=== PATIENT | male | born 1955 | race African-American/Black ===

== ENCOUNTER 2018-02-10 14:19 | Inpatient (IN) | payer MEDICARE, MEDICAID ==
[~2018-02-10] VITALS: Ht 170.2 cm; Wt 95.3 kg
[~2018-02-10 14:19] MED LIST: AMLO5TAB4 PO; FLUT1DIS3 IH; HYDR-523 PO
[2018-02-10] MEDS ORDERED: LIDOCAINE HCL/PF 1% 2ML VIAL ONE (15:34)
[2018-02-10] MEDS ORDERED: ALBUTEROL (0.083%) 2.5MG/3ML NEB HHN STA (15:47)
[2018-02-10] MEDS ORDERED: IPRATROPIUM BROMIDE (0.02%) 0.5MG/2.5ML NEB HHN STA (15:47)
[2018-02-10] MEDS ORDERED: METHYLPREDNISOLONE SOD SUCC 125 MG/2 ML VIAL IV STA (15:47)
[2018-02-10 16:00] LABS: BASOPHILS % 0.5 % (0.0-2.0); EOSINOPHILS % 2.2 % (0.0-5.0); HEMATOCRIT. 38.7 % (42.0-52.0); HEMOGLOBIN. 12.8 g/dL (14.0-18.0); LYMPHOCYTES % 10.9 % (20.0-50.0); MEAN CORPUSCULAR HEMOGLOBIN 26.7 pg (28.0-32.0); MEAN CORPUSCULAR VOLUME 80.4 fL (80.0-94.0); MEAN PLATELET VOLUME 7.9 fl (7.4-10.4); MONOCYTES % 8.2 % (2.0-8.0); NEUTROPHILS % 78.2 % (40.0-76.0); PLATELET 418 x1000/uL (130-400); RED BLOOD CELL COUNT 4.81 mill/uL (4.7-6.1); RED CELL DISTRIBUTION WIDTH 16.6 % (11.6-14.6)
[2018-02-10 16:03] LABS: BG BASE EXCESS 0.8 mmol/L (-2.0-2.0); BG BILEVEL POS AIRWAY PRESSURE 15/5; BG DEOXYHEMOGLOBIN 1.1 % (0.0-5.0); BG HCO3 ACT 27.2 mmol/L (22.0-26.0); BG METHEMOGLOBIN 0.3 % (0.0-1.5); BG OXYGEN SATURATION 98.9 % (92.0-98.5); BG OXYHEMOGLOBIN 95.6 % (94.0-97.0); BG PCO2 50.6 mmHg (35.0-45.0); BG PH 7.348 (7.350-7.450); BG PO2 159.2 mmHg (75.0-100.0); BG SAMPLE SITE RIGHT RADIAL; BG TOTAL HEMOGLOBIN 12.8 g/dL (12.0-18.0); BG VENT MODE MASK - BIPAP; BG VENT RATE 14 set
[2018-02-10 16:03] LABS: CHLORIDE 103 mEq/L (98-107)
[2018-02-10] MEDS ORDERED: LEVOFLOXACIN 750MG PREMIX 150 ML IV ONE (19:00)
[2018-02-10] MEDS ORDERED: CEFTRIAXONE 1,000 MG in DEXTROSE 5% WATER 50 ML IV SCH (21:45)
[2018-02-10] MEDS ORDERED: ACETAMINOPHEN 325MG TABLET PO PRN (21:45)
[2018-02-10] MEDS ORDERED: ZOLPIDEM TARTRATE 5MG TABLET PO PRN (21:45)
[2018-02-10 22:00] VITALS: BP 118/67
[2018-02-10] MEDS: AMLODIPINE 5MG TABLET PO SCH (22:26)
[2018-02-10] MEDS: METHYLPREDNISOLONE SOD SUCC 125 MG/2 ML VIAL IV SCH (23:25)
[2018-02-10] MEDS: AZITHROMYCIN 500 MG in DEXT 5% WATER 250 ML IV SCH (23:25)
[2018-02-10 23:50] VITALS: BP 156/81
[2018-02-11] VITALS (9 sets, daily range): BP systolic 128–151; BP diastolic 56–102
[2018-02-11] MEDS ORDERED: METHYLPREDNISOLONE SOD SUCC 125 MG/2 ML VIAL IV SCH
[2018-02-11] MEDS: IPRATROPIUM/ALBUTEROL 0.5-3(2.5)MG/3ML NEB HHN SCH ×6 (00:06→21:06)
[2018-02-11] MEDS: CEFTRIAXONE 2 G in DEXTROSE 5% WATER 50 ML IV SCH (00:51)
[2018-02-11] MEDS: TRAMADOL 50MG TABLET PO PRN ×3 (05:03→16:13)
[2018-02-11] MEDS: METHYLPREDNISOLONE SOD SUCC 125 MG/2 ML VIAL IV SCH ×3 (05:04→16:13)
[2018-02-11 06:03] LABS: CHLORIDE 101 mEq/L (98-107)
[2018-02-11 06:18] LABS: HEMATOCRIT. 37.1 % (42.0-52.0); HEMOGLOBIN. 12.3 g/dL (14.0-18.0); MEAN CORPUSCULAR HEMOGLOBIN 26.6 pg (28.0-32.0); MEAN CORPUSCULAR VOLUME 80.4 fL (80.0-94.0); MEAN PLATELET VOLUME 7.7 fl (7.4-10.4); PLATELET 335 x1000/uL (130-400); RED BLOOD CELL COUNT 4.61 mill/uL (4.7-6.1); RED CELL DISTRIBUTION WIDTH 16.5 % (11.6-14.6)
[2018-02-11] MEDS: FAMOTIDINE 20MG TABLET PO SCH ×2 (08:49→21:10)
[2018-02-11] MEDS: ENOXAPARIN 30MG/0.3ML SYR SUBCUT SCH ×3 (08:49→21:11)
[2018-02-11] MEDS: AMLODIPINE 5MG TABLET PO SCH (08:50)
[2018-02-11 13:36] LABS: BG BASE EXCESS 3.4 mmol/L (-2.0-2.0); BG CARBOXYHEMOGLOBIN 0.9 % (0.5-1.5); BG FRACTION INSPIRED OXYGEN 28; BG HCO3 ACT 29.2 mmol/L (22.0-26.0); BG METHEMOGLOBIN 0.3 % (0.0-1.5); BG OXYHEMOGLOBIN 96.8 % (94.0-97.0); BG PCO2 49.7 mmHg (35.0-45.0); BG PH 7.387 (7.350-7.450); BG PO2 105.4 mmHg (75.0-100.0); BG SAMPLE SITE RIGHT RADIAL; BG TOTAL HEMOGLOBIN 12.3 g/dL (12.0-18.0); BG VENT MODE NASAL CANNULA
[2018-02-11 13:43] LABS: PLATELET ESTIMATE NORMAL
[2018-02-11] MEDS ORDERED: LIDOCAINE HCL/PF 1% 2ML VIAL ONE (15:18)
[2018-02-11] MEDS ORDERED: IOHEXOL-350 100 ML BOTTLE ONE (18:40)
[2018-02-11] MEDS: NICOTINE 21MG PATCH TD SCH ×2 (18:41→18:45)
[2018-02-11] MEDS: DOCUSATE SODIUM SUGAR FREE 100MG/10ML UDC NG SCH (18:41)
[2018-02-11] MEDS: FUROSEMIDE 40MG/4ML VIAL IVP SCH (21:10)
[2018-02-11] MEDS: LACTULOSE 20G/30ML UDC PO SCH (21:12)
[2018-02-11] MEDS: MORPHINE SULFATE 4 MG/ML CPJ (NOT FOR IM USE) IV PRN (21:18)
[2018-02-12] VITALS (11 sets, daily range): BP systolic 105–145; BP diastolic 67–83
[2018-02-12] MEDS: METHYLPREDNISOLONE SOD SUCC 125 MG/2 ML VIAL IV SCH ×4 (00:32→17:39)
[2018-02-12] MEDS: AZITHROMYCIN 500 MG in DEXT 5% WATER 250 ML IV SCH (00:32)
[2018-02-12] MEDS: CEFTRIAXONE 2 G in DEXTROSE 5% WATER 50 ML IV SCH (00:43)
[2018-02-12] MEDS: IPRATROPIUM/ALBUTEROL 0.5-3(2.5)MG/3ML NEB HHN SCH ×7 (01:22→20:37)
[2018-02-12] MEDS: MORPHINE SULFATE 4 MG/ML CPJ (NOT FOR IM USE) IV PRN ×3 (02:33→15:26)
[2018-02-12 05:43] LABS: HEMATOCRIT. 35.4 % (42.0-52.0); HEMOGLOBIN. 11.8 g/dL (14.0-18.0); MEAN CORPUSCULAR HEMOGLOBIN 26.5 pg (28.0-32.0); MEAN CORPUSCULAR VOLUME 79.7 fL (80.0-94.0); MEAN PLATELET VOLUME 7.8 fl (7.4-10.4); PLATELET 332 x1000/uL (130-400); RED BLOOD CELL COUNT 4.44 mill/uL (4.7-6.1); RED CELL DISTRIBUTION WIDTH 16.9 % (11.6-14.6)
[2018-02-12 05:53] LABS: CHLORIDE 100 mEq/L (98-107)
[2018-02-12 06:02] LABS: HDL CHOLESTEROL 53 mg/dL (40-59); LDL CHOLESTEROL 55 mg/dL (5-100)
[2018-02-12] MEDS: LACTULOSE 20G/30ML UDC PO SCH ×3 (06:17→21:20)
[2018-02-12] MEDS: FUROSEMIDE 40MG/4ML VIAL IVP SCH (09:14)
[2018-02-12] MEDS: DOCUSATE SODIUM SUGAR FREE 100MG/10ML UDC NG SCH (09:14)
[2018-02-12] MEDS: AMLODIPINE 5MG TABLET PO SCH (09:28)
[2018-02-12] MEDS: ENOXAPARIN 30MG/0.3ML SYR SUBCUT SCH ×2 (09:28→21:21)
[2018-02-12] MEDS: FAMOTIDINE 20MG TABLET PO SCH ×2 (09:28→21:20)
[2018-02-12 13:45] LABS: PLATELET ESTIMATE NORMAL
[2018-02-12] MEDS: HYDROCODONE/ACETAMINOPHEN 5/325MG TABLET PO PRN ×2 (17:42→22:25)
[2018-02-12 21:14] LABS: *AMPHETAMINES SCREEN URINE NEGATIVE (NEGATIVE); *BARBITURATES SCREEN URINE NEGATIVE (NEGATIVE); *BENZODIAZEPINES SCREEN URINE NEGATIVE (NEGATIVE); *COCAINE SCREEN URINE NEGATIVE (NEGATIVE)
[2018-02-12 21:17] LABS: CANNABINOID URINE SCREEN NEGATIVE (NEGATIVE); METHADONE URINE SCREEN NEGATIVE (NEGATIVE); OPIATES URINE SCREEN PRESUMTIVE POSITIVE (NEGATIVE); PHENCYCLIDINE URINE SCREEN NEGATIVE (NEGATIVE)
[2018-02-13] VITALS (7 sets, daily range): BP systolic 121–175; BP diastolic 59–89
[2018-02-13] MEDS: METHYLPREDNISOLONE SOD SUCC 125 MG/2 ML VIAL IV SCH ×2 (00:30→05:28)
[2018-02-13] MEDS: CEFTRIAXONE 2 G in DEXTROSE 5% WATER 50 ML IV SCH (00:30)
[2018-02-13] MEDS: AZITHROMYCIN 500 MG in DEXT 5% WATER 250 ML IV SCH (00:30)
[2018-02-13] MEDS: MORPHINE SULFATE 4 MG/ML CPJ (NOT FOR IM USE) IV PRN ×2 (00:31→08:13)
[2018-02-13] MEDS: IPRATROPIUM/ALBUTEROL 0.5-3(2.5)MG/3ML NEB HHN SCH ×3 (04:05→12:00)
[2018-02-13] MEDS: LACTULOSE 20G/30ML UDC PO SCH ×2 (05:28→14:00)
[2018-02-13] MEDS: DOCUSATE SODIUM SUGAR FREE 100MG/10ML UDC NG SCH (08:42)
[2018-02-13] MEDS: FAMOTIDINE 20MG TABLET PO SCH (08:42)
[2018-02-13] MEDS: FUROSEMIDE 40MG/4ML VIAL IVP SCH (08:42)
[2018-02-13] MEDS: AMLODIPINE 5MG TABLET PO SCH (08:43)
[2018-02-13] MEDS: NICOTINE 21MG PATCH TD SCH ×2 (08:43→08:48)
[2018-02-13] MEDS: ENOXAPARIN 30MG/0.3ML SYR SUBCUT SCH (08:47)
[2018-02-13] MEDS: HYDROCODONE/ACETAMINOPHEN 5/325MG TABLET PO PRN (11:24)
[2018-02-13] MEDS ORDERED: METHYLPREDNISOLONE SOD SUCC 40 MG/ML VIAL IV SCH (14:00)
== END 2018-02-13 14:30 | disposition home or self-care (01) | DRG 291 ==
LOC: ER 14:32 → 5EST 18:33 → ENRESERV 19:42 → 5EST 20:43
PROVIDERS: ADMIT Ophthalmology; ATTEND Internal Medicine
PROC: 5A09357 Assistance with Respiratory Ventilation, Less than 24 Consecutive Hours, Continuous Positive Airway Pressure (ICD-10-PCS; principal; 2018-02-10)
DX: I11.0 Hypertensive heart disease with heart failure (principal); J18.9 Pneumonia, unspecified organism; J44.1 Chronic obstructive pulmonary disease with (acute) exacerbation; J44.0 Chronic obstructive pulmonary disease with (acute) lower respiratory infection; F11.20 Opioid dependence, uncomplicated; R10.10 Upper abdominal pain, unspecified; I50.43 Acute on chronic combined systolic (congestive) and diastolic (congestive) heart failure; I27.81 Cor pulmonale (chronic); D64.9 Anemia, unspecified; D72.829 Elevated white blood cell count, unspecified; G89.4 Chronic pain syndrome; F17.210 Nicotine dependence, cigarettes, uncomplicated; T38.0X5A Adverse effect of glucocorticoids and synthetic analogues, initial encounter; F41.9 Anxiety disorder, unspecified; Z88.8 Allergy status to other drugs, medicaments and biological substances; Z79.899 Other long term (current) drug therapy; Z99.81 Dependence on supplemental oxygen; Y92.89 Other specified places as the place of occurrence of the external cause
CPT/HCPCS: 36415; 36600; 71045; 80048; 80061; 80305; 82375; 82805; 83036; 83605; 83880; 84484; 87804; 93005; 93306; 93970; 96374; 96375; 99291; J0456; J0696; J1650; J1940; J1956; J2270; J2930; J3490; J7030; J7050; J7060; J7611; J7620; Q9967

== ENCOUNTER 2018-05-11 18:39 | Emergency (ER) | payer MEDICARE, MEDICAID ==
[~2018-05-11] VITALS: Ht 175.3 cm; Wt 85.0 kg
[2018-05-11] MEDS ORDERED: FENT-70 TD (18:49)
[2018-05-12 00:09] VITALS: BP 127/61
== END 2018-05-12 00:22 | disposition home or self-care (01) ==
LOC: ER 18:39
DX: J44.9 Chronic obstructive pulmonary disease, unspecified (principal); R06.03 Acute respiratory distress; I11.0 Hypertensive heart disease with heart failure; I50.9 Heart failure, unspecified; E11.9 Type 2 diabetes mellitus without complications
CPT/HCPCS: 82962; 99282; 99283

== ENCOUNTER 2018-05-25 15:23 | Inpatient (IN) | payer MEDICARE, MEDICAID ==
[~2018-05-25] VITALS: Ht 177.8 cm; Wt 91.6 kg
[~2018-05-25 15:23] MED LIST changes: +FENT-70 TD
[2018-05-25 16:14] LABS: BG BASE EXCESS 5.1 mmol/L (-2.0-2.0); BG CARBOXYHEMOGLOBIN 2.7 % (0.5-1.5); BG DEOXYHEMOGLOBIN 5.3 % (0.0-5.0); BG HCO3 ACT 32.2 mmol/L (22.0-26.0); BG METHEMOGLOBIN 0.3 % (0.0-1.5); BG OXYGEN SATURATION 94.5 % (92.0-98.5); BG OXYHEMOGLOBIN 91.7 % (94.0-97.0); BG PH 7.347 (7.350-7.450); BG PO2 75.3 mmHg (75.0-100.0); BG SAMPLE SITE LEFT RADIAL; BG TOTAL HEMOGLOBIN 11.8 g/dL (12.0-18.0); BG VENT MODE NASAL CANNULA
[2018-05-25 17:00] LABS: CHLORIDE 102 mEq/L (98-107)
[2018-05-25 17:04] LABS: BASOPHILS % 0.8 % (0.0-2.0); EOSINOPHILS % 1.2 % (0.0-5.0); HEMATOCRIT. 33.9 % (42.0-52.0); HEMOGLOBIN. 11.3 g/dL (14.0-18.0); LYMPHOCYTES % 11.2 % (20.0-50.0); MEAN CORPUSCULAR HEMOGLOBIN 28.3 pg (28.0-32.0); MEAN PLATELET VOLUME 7.1 fl (7.4-10.4); MONOCYTES % 7.1 % (2.0-8.0); NEUTROPHILS % 79.7 % (40.0-76.0); PLATELET 302 x1000/uL (130-400); RED BLOOD CELL COUNT 3.99 mill/uL (4.7-6.1); RED CELL DISTRIBUTION WIDTH 16.5 % (11.6-14.6)
[2018-05-25] MEDS ORDERED: IPRATROPIUM/ALBUTEROL 0.5-3(2.5)MG/3ML NEB HHN ONE (19:45)
[2018-05-25 21:20] LABS: CLARITY URINE CLEAR (CLEAR); COLOR URINE YELLOW (YELLOW); KETONES URINE NEGATIVE (NEGATIVE); LEUKOCYTE ESTERASE URINE NEGATIVE (NEGATIVE); NITRITE URINE NEGATIVE (NEGATIVE); OCCULT BLOOD URINE NEGATIVE (NEGATIVE); PROTEIN URINE 1+ (NEGATIVE); SPECIFIC GRAVITY URINE 1.026 (1.005-1.030)
[2018-05-25 21:35] LABS: *AMPHETAMINES SCREEN URINE NEGATIVE (NEGATIVE); *BARBITURATES SCREEN URINE NEGATIVE (NEGATIVE); *BENZODIAZEPINES SCREEN URINE NEGATIVE (NEGATIVE)
[2018-05-25 21:36] LABS: *COCAINE SCREEN URINE NEGATIVE (NEGATIVE); CANNABINOID URINE SCREEN NEGATIVE (NEGATIVE); METHADONE URINE SCREEN PRESUMTIVE POSITIVE (NEGATIVE); OPIATES URINE SCREEN PRESUMTIVE POSITIVE (NEGATIVE); PHENCYCLIDINE URINE SCREEN NEGATIVE (NEGATIVE)
[2018-05-26] VITALS (14 sets, daily range): BP systolic 128–177; BP diastolic 57–183
[2018-05-26] MEDS ORDERED: METHYLPREDNISOLONE SOD SUCC 40 MG/ML VIAL IV ONE
[2018-05-26] MEDS ORDERED: DEXT 5%/0.45% NACL 1000ML 1,000 ML IV SCH ×2 (01:39→15:45)
[2018-05-26] MEDS ORDERED: ACETAMINOPHEN 325MG TABLET PO PRN (01:45)
[2018-05-26] MEDS ORDERED: METHYLPREDNISOLONE SOD SUCC 40 MG/ML VIAL IV SCH (01:45)
[2018-05-26] MEDS ORDERED: ENOXAPARIN 40MG/0.4ML SYR SUBCUT SCH (01:45)
[2018-05-26] MEDS ORDERED: ONDANSETRON HCL 4MG/2ML INJ IV PRN (01:45)
[2018-05-26] MEDS ORDERED: CLONIDINE 0.1MG TABLET PO PRN (01:45)
[2018-05-26] MEDS ORDERED: MAGNESIUM/ALUMINUM HYDROXIDE/SIMETHICONE 30ML UDC PO PRN (01:45)
[2018-05-26] MEDS: IPRATROPIUM/ALBUTEROL 0.5-3(2.5)MG/3ML NEB INH SCH ×5 (04:00→21:36)
[2018-05-26] MEDS: METHYLPREDNISOLONE SOD SUCC 40 MG/ML VIAL IV SCH ×4 (05:05→23:09)
[2018-05-26] MEDS: LEVOFLOXACIN 500MG PREMIX 100 ML IV SCH (05:07)
[2018-05-26 07:22] LABS: CHLORIDE 100 mEq/L (98-107)
[2018-05-26 07:34] LABS: HEMATOCRIT. 32.6 % (42.0-52.0); HEMOGLOBIN. 10.7 g/dL (14.0-18.0); MEAN CORPUSCULAR HEMOGLOBIN 27.9 pg (28.0-32.0); MEAN CORPUSCULAR VOLUME 85.1 fL (80.0-94.0); MEAN PLATELET VOLUME 7.3 fl (7.4-10.4); PLATELET 264 x1000/uL (130-400); RED BLOOD CELL COUNT 3.84 mill/uL (4.7-6.1); RED CELL DISTRIBUTION WIDTH 16.2 % (11.6-14.6)
[2018-05-26 07:35] LABS: LDL CHOLESTEROL 75 mg/dL (5-100)
[2018-05-26 07:37] LABS: HDL CHOLESTEROL 66 mg/dL (40-59)
[2018-05-26] MEDS: HYDROCODONE/ACETAMINOPHEN 5/325MG TABLET PO PRN ×3 (08:42→21:43)
[2018-05-26] MEDS: AMLODIPINE 5MG TABLET PO SCH (08:43)
[2018-05-26] MEDS: ENOXAPARIN 30MG/0.3ML SYR SUBCUT SCH ×2 (08:43→20:01)
[2018-05-26] MEDS: ASPIRIN 81MG EC TABLET PO SCH (08:43)
[2018-05-26] MEDS: NICOTINE 21MG PATCH TD SCH (16:46)
[2018-05-26] MEDS ORDERED: DEXTROSE 50% WATER 50ML SYRINGE IV PRN (17:00)
[2018-05-26] MEDS: INSULIN LISPRO 100 UNITS/ML SUBCUT SCH ×2 (17:31→21:45)
[2018-05-26 17:37] LABS: PLATELET ESTIMATE NORMAL
[2018-05-26] MEDS: BLOOD SUGAR DIAGNOSTIC STRIP TEST SCH (20:01)
[2018-05-27] VITALS (7 sets, daily range): BP systolic 111–150; BP diastolic 54–89
[2018-05-27] MEDS: IPRATROPIUM/ALBUTEROL 0.5-3(2.5)MG/3ML NEB INH SCH ×5 (00:52→16:37)
[2018-05-27] MEDS: LEVOFLOXACIN 500MG PREMIX 100 ML IV SCH (03:42)
[2018-05-27] MEDS: HYDROCODONE/ACETAMINOPHEN 5/325MG TABLET PO PRN ×2 (04:16→09:31)
[2018-05-27] MEDS: METHYLPREDNISOLONE SOD SUCC 40 MG/ML VIAL IV SCH (05:19)
[2018-05-27] MEDS: BLOOD SUGAR DIAGNOSTIC STRIP TEST SCH ×2 (07:30→12:15)
[2018-05-27 07:40] LABS: HEMATOCRIT 30.8 % (42.0-52.0); HEMOGLOBIN 10.2 g/dL (14.0-18.0); MEAN CORPUSCULAR HEMOGLOBIN 27.5 pg (28.0-32.0); MEAN CORPUSCULAR VOLUME 83.5 fL (80.0-94.0); RED BLOOD CELL COUNT 3.69 mill/uL (4.7-6.1)
[2018-05-27] MEDS: INSULIN LISPRO 100 UNITS/ML SUBCUT SCH ×2 (07:43→12:53)
[2018-05-27 08:07] LABS: CHLORIDE 99 mEq/L (98-107)
[2018-05-27 08:20] LABS: T4 FREE 0.77 ng/dL (0.76-1.46)
[2018-05-27] MEDS: NICOTINE 21MG PATCH TD SCH (09:09)
[2018-05-27] MEDS: AMLODIPINE 5MG TABLET PO SCH (09:10)
[2018-05-27] MEDS: ASPIRIN 81MG EC TABLET PO SCH (09:10)
[2018-05-27] MEDS: ENOXAPARIN 30MG/0.3ML SYR SUBCUT SCH (09:11)
[2018-05-27] MEDS ORDERED: LACTULOSE 20G/30ML UDC PO SCH (11:30)
[2018-05-27] MEDS ORDERED: GUAIFENESIN 600MG ER TABLET PO SCH ×2 (12:00→21:00)
[2018-05-27] MEDS ORDERED: CARVEDILOL 3.125 MG TABLET PO NR (12:00)
[2018-05-27 13:35] LABS: PLATELET 233 x1000/uL (130-400)
[2018-05-27] MEDS ORDERED: METHYLPREDNISOLONE SOD SUCC 40 MG/ML VIAL IV SCH (14:00)
[2018-05-27] MEDS ORDERED: CARVEDILOL 3.125 MG TABLET PO SCH (21:00)
== END 2018-05-27 17:35 | disposition home or self-care (01) | DRG 291 ==
LOC: ER 15:23 → 3WST 20:32 → EDBEDREQSVC 20:35 → EDBEDREQ 20:35 → EDBEDREQTM 20:35 → ENRESERV 22:33
PROVIDERS: ADMIT Internal Medicine; ATTEND Internal Medicine
PROC: 5A09357 Assistance with Respiratory Ventilation, Less than 24 Consecutive Hours, Continuous Positive Airway Pressure (ICD-10-PCS; principal; 2018-05-25)
DX: I11.0 Hypertensive heart disease with heart failure (principal); J96.20 Acute and chronic respiratory failure, unspecified whether with hypoxia or hypercapnia; E66.2 Morbid (severe) obesity with alveolar hypoventilation; E87.2 Acidosis; J84.9 Interstitial pulmonary disease, unspecified; D64.9 Anemia, unspecified; I50.33 Acute on chronic diastolic (congestive) heart failure; F11.90 Opioid use, unspecified, uncomplicated; D72.810 Lymphocytopenia; E78.5 Hyperlipidemia, unspecified; F17.210 Nicotine dependence, cigarettes, uncomplicated; E11.65 Type 2 diabetes mellitus with hyperglycemia; J44.9 Chronic obstructive pulmonary disease, unspecified; K21.9 Gastro-esophageal reflux disease without esophagitis; Z99.81 Dependence on supplemental oxygen; Z88.8 Allergy status to other drugs, medicaments and biological substances; Z79.1 Long term (current) use of non-steroidal anti-inflammatories (NSAID); Z79.899 Other long term (current) drug therapy; Z71.6 Tobacco abuse counseling; Z68.29 Body mass index [BMI] 29.0-29.9, adult
CPT/HCPCS: 36415; 36600; 71045; 80048; 80061; 80305; 82375; 82805; 82962; 83036; 83880; 84439; 84443; 84484; 85027; 85379; 87070; 87804; 93005; 93970; 94640; 94660; 96374; 99285; A6261; J1650; J1815; J1956; J2920; J7620